=== PATIENT | female | born 1985 | race Caucasian/White ===

== ENCOUNTER 2018-11-09 19:50 | Emergency (ER) | payer MEDICAID ==
[~2018-11-09] VITALS: Ht 167.6 cm; Wt 114.0 kg
[2018-11-09] MEDS ORDERED: ALPRAZOLAM 0.25 MG TABLET PO ONE (20:30)
[2018-11-09 23:00] VITALS: BP 121/60
== END 2018-11-09 23:00 | disposition home or self-care (01) ==
LOC: ER 19:50
DX: F41.9 Anxiety disorder, unspecified (principal); R07.89 Other chest pain
CPT/HCPCS: 71045; 81025; 93005; 99283